=== PATIENT | male | born 1965 | race Caucasian/White ===

== ENCOUNTER 2019-04-28 17:55 | Emergency (ER) | payer OTHER ==
[~2019-04-28 17:55] MED LIST: ASPIRIN 81 MG TABLET, CHEWABLE ONE; CLOPIDOGREL BISULFATE 300 MG TABLET ONE
[2019-04-28] MEDS ORDERED: CLOPIDOGREL BISULFATE 300 MG TABLET PO ONE (18:13)
[2019-04-28] MEDS ORDERED: NITROGLYCERIN 0.4 MG/TAB 25 TAB/BOTTLE SL PRN (18:13)
[2019-04-28] MEDS ORDERED: ASPIRIN 81 MG TABLET, CHEWABLE PO ONE (18:13)
[2019-04-28] MEDS ORDERED: NORMAL SALINE 1000 ML 1,000 ML IV PRN (18:13)
--- NOTE | 2019-04-28 18:15 | ER Document Report ---
ED General - General Chief Complaint: Chest Pain Stated Complaint: CHEST PAIN Time Seen by Provider: 04/28/19 18:09 Primary Care Provider: ROSELINE MACHUCA FNP [Primary Care Provider] - Follow up as needed TRAVEL OUTSIDE OF THE [place] IN LAST 30 DAYS: No - HPI Patient complains to provider of: Pain Notes: Diabetic male with history of tobacco abuse and hyperlipidemia presents with chest pain for now 6 hours. She initially diaphoretic. Has no history of myocardial infarction. Denies fever chills or cough. - Related Data Allergies/Adverse Reactions: No Known Allergies Allergy (Verified 09/27/15 17:12) Past Medical History - Social History Smoking Status: Current Every Day Smoker Family History: None - Past Medical History Cardiac Medical History: Reports: Hx Hypercholesterolemia Endocrine Medical History: Reports: Hx Diabetes Mellitus Type 2 - Immunizations Hx Diphtheria, Pertussis, Tetanus Vaccination: Yes Review of Systems - Review of Systems Notes: REVIEW OF SYSTEMS: CONSTITUTIONAL: -fevers, -chills EENT: -eye pain, -difficulty swallowing, -nasal congestion CARDIOVASCULAR: Chest pain RESPIRATORY: -cough, -SOB GASTROINTESTINAL: -abdominal pain, -nausea, -vomiting, -diarrhea GENITOURINARY: -dysuria, -hematuria MUSCULOSKELETAL: -back pain, -neck pain SKIN: -rash or skin lesions. HEMATOLOGIC: -easy bruising or bleeding. LYMPHATIC: -swollen, enlarged glands. NEUROLOGICAL: -altered mental status or loss of consciousness, -headache, - neurologic symptoms PSYCHIATRIC: -anxiety, -depression. ALL OTHER SYSTEMS REVIEWED AND NEGATIVE. Physical Exam - Vital signs Vitals: Resp Pulse Ox 16 97 04/28/19 18:08 04/28/19 18:08 - Notes Notes: PHYSICAL EXAMINATION: GENERAL: Acute distress, diaphoresis HEAD: Atraumatic, normocephalic. EYES: Pupils equal round and reactive to light, extraocular movements intact, sclera anicteric, conjunctiva are normal. ENT: nares patent, oropharynx clear without exudates. Moist mucous membranes. NECK: Normal range of motion, supple without lymphadenopathy LUNGS: Breath sounds clear to auscultation bilaterally and equal. No wheezes rales or rhonchi. HEART: Regular rate and rhythm without murmurs ABDOMEN: Soft, nontender, normoactive bowel sounds. No guarding, no rebound. No masses appreciated. EXTREMITIES: Normal range of motion, no pitting or edema. No cyanosis. NEUROLOGICAL: Cranial nerves grossly intact. Normal speech, normal gait. Normal sensory and motor exams. PSYCH: Normal mood, normal affect. SKIN: Warm, Dry, normal turgor, no rashes or lesions noted. Course - Re-evaluation Re-evalutation: 04/28/19 19:00 Critically ill-appearing patient presents concerning story of STEMI with s ignificant ST elevations or simple changes in EKG. Patient is also hypotensive initially with systolic blood pressure 74. 2 large-bore IVs emergently established. Begin fluid resuscitation. Patient given oral aspirin and loading dose of Plavix. Portal chest x-ray ordered along with extensive lab work-up. Chest x-ray has no widened mediastinum. Patient given morphine analgesia for comfort. Emergent consult made to tertiary care center. Discussed case at length with Dr. Nuno Gomez [facility]. EKG reviewed agreed STEMI. Decision made to fly patient to the Distribution Operation Supervisor as opposed to administering lytics here Patient given a bolus of heparin 6000 units here in the emergency department. Patient's systolic blood pressure improved with fluid resuscitation recent systolic 104. Patient will be transferred to [facility] - Vital Signs Vital signs: Temp Pulse Resp BP Pulse Ox 98.1 F 15 101/82 100 04/28/19 18:15 04/28/19 18:41 04/28/19 18:41 04/28/19 18:41 - Laboratory Result Diagrams: 04/28/19 18:10 04/28/19 18:10 Laboratory results interpreted by wi: 04/28/19 18:10 Sodium 134.9 L Glucose 123 H Creatine Kinase 523 H - EKG Interpretation by La EKG shows normal: Sinus rhythm Rate: Normal Additional EKG results interpreted by me: 04/28/19 19:[address] elevations in leads II, 3, aVF and reciprocal changes in aVL. Patient is having a STEMI Critical Care Note - Critical Care Note Total time excluding time spent on procedures (mins): 36 Discharge - Discharge Clinical Impression: STEMI (ST elevation myocardial infarction) Qualifiers: Involved coronary artery: unspecified coronary artery Qualified Code(s): I21.3 - ST elevation (STEMI) myocardial infarction of unspecified site Condition: Serious Disposition: [facility] Referrals: SVEN,ROSELINE, ASSISTANT FRONT DESK MANAGER [Primary Care Provider] - Follow up as needed
[2019-04-28 18:21] LABS: HEMATOCRIT 43.8 % (37.9-51.0); MEAN CORPUSCULAR HEMOGLOBIN 29.3 pg (27.0-33.4); MEAN CORPUSCULAR HGB CONC 34.3 g/dL (32.0-36.0); MEAN CORPUSCULAR VOLUME 86 fl (80-97); PLATELET COUNT 302 10^3/uL (150-450); RED BLOOD COUNT 5.13 10^6/uL (4.35-5.55); RED CELL DISTRIBUTION WIDTH 13.5 % (11.5-14.0); WHITE BLOOD COUNT 8.6 10^3/uL (4.0-10.5)
[2019-04-28 18:33] LABS: INTERNATIONAL RATION (INR) 0.96; PARTIAL THROMBOPLASTIN TIME 28.1 SEC (23.5-35.8); PROTHROMBIN TIME 12.8 SEC (11.4-15.4)
[2019-04-28] MEDS ORDERED: HEPARIN SOD (PORCINE) 1,000 UNIT/ML 10 ML VIAL ONE (18:41)
--- NOTE | 2019-04-28 18:41 | RADIOLOGY REPORT (SQ) ---
EXAM DESCRIPTION: CHEST SINGLE VIEW COMPLETED DATE/TIME: 04/28/2019 6:18 pm REASON FOR STUDY: Chest pain COMPARISON: None. EXAM PARAMETERS: NUMBER OF VIEWS: One view. TECHNIQUE: Single frontal radiographic view of the chest acquired. RADIATION DOSE: NA LIMITATIONS: None. FINDINGS: The cardiomediastinal silhouette and pulmonary vasculature are within normal limits. Ther e is no consolidation, pleural effusion or pneumothorax. There is no acute abnormality of the imaged osseous structures. IMPRESSION: No acute cardiopulmonary process. TECHNICAL DOCUMENTATION: JOB ID: [id number] [employer]- All Rights Reserved Reading location - IP/workstation name: [email or web address]
[2019-04-28] MEDS ORDERED: HEPARIN (PORK) 10,000 UNIT/ML 5 ML VIAL IV ONE (18:42)
[2019-04-28 18:56] LABS: ANION GAP 7 (5-19); BLOOD UREA NITROGEN 14 mg/dL (7-20); CALCIUM 9.6 mg/dL (8.4-10.2); CARBON DIOXIDE 27 mmol/L (22-30); CHLORIDE 101 mmol/L (98-107); CREATINE KINASE 523 U/L (55-170); GLUCOSE 123 mg/dL (75-110); POTASSIUM 4.2 mmol/L (3.6-5.0)
[2019-04-28 19:08] LABS: CREATINE KINASE MB 32.8 ng/mL (<4.55)
--- NOTE | 2019-04-28 19:09 | EKG REPORT ---
SEVERITY:- ABNORMAL ECG - SINUS RHYTHM INFERIOR INFARCT, ACUTE PROBABLE POSTERIOR INFARCT : Confirmed by: Roque Mcfadden MD 28-Apr-2019 19:08:41
[2019-04-28 19:10] LABS: TROPONIN I 1.06 ng/mL
[2019-04-28 19:17] VITALS: BP 106/64
--- NOTE | 2019-04-28 22:07 | EKG REPORT ---
SEVERITY:- ABNORMAL ECG - SINUS RHYTHM INFERIOR INFARCT, POSSIBLY ACUTE LATERAL INFARCT, AGE INDETERMINATE : Confirmed by: Roque Mcfadden MD 28-Apr-2019 22:07:05
--- NOTE | 2019-04-28 22:09 | EKG REPORT ---
SEVERITY:- ABNORMAL ECG - SINUS RHYTHM INFERIOR INFARCT, ACUTE PROBABLE POSTERIOR INFARCT : Confirmed by: Roque Mcfadden MD 28-Apr-2019 22:08:38
== END 2019-04-28 18:47 | disposition short-term general hospital (02) ==
LOC: ER 17:55
DX: I21.3 ST elevation (STEMI) myocardial infarction of unspecified site (principal); R07.9 Chest pain, unspecified; R61 Generalized hyperhidrosis; E11.9 Type 2 diabetes mellitus without complications; F17.200 Nicotine dependence, unspecified, uncomplicated
CPT/HCPCS: 93005; 99291; 96361; 96374; 36415; 82553; 82550; 85027; 85610; 85730; 80048; 84484; 71045; 93010; J3490; J1644; J7030

== ENCOUNTER 2019-10-20 09:16 | Observation (INO) | payer OTHER ==
--- NOTE | 2019-10-20 10:04 | RADIOLOGY REPORT (SQ) ---
EXAM DESCRIPTION: CHEST SINGLE VIEW IMAGES COMPLETED DATE/TIME: 10/20/2019 9:55 am REASON FOR STUDY: cough COMPARISON: AP chest 04/28/2019 EXAM PARAMETERS: NUMBER OF VIEWS: One view. TECHNIQUE: Single frontal radiographic view of the chest acquired. RADIATION DOSE: NA LIMITATIONS: None. FINDINGS: LUNGS AND PLEURA: No opacities, masses or pneumothorax. No pleural effusion. MEDIASTINUM AND HILAR STRUCTURES: No masses. Contour normal. HEART AND VASCULAR STRUCTURES: Heart normal in size. Normal vasculature. BONES: No acute findings. HARDWARE: None in the chest. OTHER: No other significant finding. IMPRESSION: NO ACUTE RADIOGRAPHIC FINDING IN THE CHEST. TECHNICAL DOCUMENTATION: JOB ID: [id number] 2010 [employer]- All Rights Reserved Reading location - IP/workstation name: [id number]
[2019-10-20 10:05] LABS: ABSOLUTE BASOPHILS # (AUTO) 0.1 10^3/uL (0.0-0.2); ABSOLUTE EOSINOPHILS # (AUTO) 0.1 10^3/uL (0.0-0.6); ABSOLUTE LYMPHOCYTES (AUTO) 1.7 10^3/uL (0.5-4.7); ABSOLUTE MONOCYTES (AUTO) 0.5 10^3/uL (0.1-1.4); ABSOLUTE NEUT (AUTO) 5.9 10^3/uL (1.7-8.2); BASOPHILS % (AUTO) 0.9 % (0-2); EOSINOPHILS % (AUTO) 0.8 % (0-6); HEMATOCRIT 37.8 % (37.9-51.0); HEMOGLOBIN 13.2 g/dL (13.5-17.0); LYMPHOCYTES % (AUTO) 20.3 % (13-45); MEAN CORPUSCULAR HEMOGLOBIN 29.7 pg (27.0-33.4); MEAN CORPUSCULAR HGB CONC 34.9 g/dL (32.0-36.0); MEAN CORPUSCULAR VOLUME 85 fl (80-97); MONOCYTES % (AUTO) 6.5 % (3-13); PLATELET COUNT 310 10^3/uL (150-450); RED BLOOD COUNT 4.43 10^6/uL (4.35-5.55); RED CELL DISTRIBUTION WIDTH 13.3 % (11.5-14.0); SEGMENTED NEUTROPHILS % (AUTO) 71.5 % (42-78); TOTAL CELLS COUNTED % (AUTO) 100 %; WHITE BLOOD COUNT 8.2 10^3/uL (4.0-10.5)
[2019-10-20 10:20] LABS: ALBUMIN 4.1 g/dL (3.5-5.0); ALKALINE PHOSPHATASE 62 U/L (38-126); ANION GAP 8 (5-19); ASPARTATE AMINO TRANSFERASE 30 U/L (17-59); BILIRUBIN,TOTAL 0.5 mg/dL (0.2-1.3); BLOOD UREA NITROGEN 42 mg/dL (7-20); CALCIUM 9.5 mg/dL (8.4-10.2); CARBON DIOXIDE 25 mmol/L (22-30); CHLORIDE 106 mmol/L (98-107); CREATINE KINASE 186 U/L (55-170); GLUCOSE 133 mg/dL (75-110); POTASSIUM 5.5 mmol/L (3.6-5.0); TOTAL PROTEIN 6.9 g/dL (6.3-8.2)
[2019-10-20 10:32] LABS: CREATINE KINASE MB 1.91 ng/mL (<4.55)
[2019-10-20 10:34] LABS: TROPONIN I < 0.012 ng/mL
[2019-10-20 10:58] LABS: A TYPE INFLUENZA AG NEGATIVE (NEGATIVE); B INFLUENZA AG NEGATIVE (NEGATIVE)
--- NOTE | 2019-10-20 11:00 | ER Document Report ---
ED General - General Chief Complaint: Cough Stated Complaint: COUGH Time Seen by Provider: 10/20/19 09:24 Primary Care Provider: ROSELINE MACHUCA FNP [Primary Care Provider] - Follow up as needed Mode of Arrival: Ambulatory Information source: Patient, [facility] Records TRAVEL OUTSIDE OF THE [place] IN LAST 30 DAYS: No - HPI Onset: This morning Quality of pain: Pressure Severity: Moderate Pain Level: 3 Context: Patient is a 54-year-old male presenting to the emergency department chief complaint of chest pain equivalent. Patient states that he felt like he was having hot flashes at work and was weak. Patient states last April he had a myocardial infarction with subsequent stent placement and his only symptomatology was similar. Patient denies travel history trauma history sick contacts. Patient denies nausea or vomiting but also states that he was sweaty when this occurred earlier today. Associated symptoms: Productive cough. denies: Nausea, Vomiting, Sweating Exacerbated by: Denies Relieved by: Denies Similar symptoms previously: No Recently seen / treated by doctor: No - Related Data Allergies/Adverse Reactions: No Known Allergies Allergy (Verified 09/27/15 17:12) Past Medical History - Social History Smoking Status: Former Smoker Frequency of alcohol use: None Drug Abuse: None Family History: None Patient has suicidal ideation: No Patient has homicidal ideation: No - Past Medical History Cardiac Medical History: Reports: Hx Hypercholesterolemia, Hx Hypertension Endocrine Medical History: Reports: Hx Diabetes Mellitus Type 2 Past Surgical History: Reports: Hx Cardiac Catheterization - stents x 2, Hx Urinary Tract Surgery - Immunizations Hx Diphtheria, Pertussis, Tetanus Vaccination: Yes Review of Systems - Review of Systems Constitutional: No symptoms reported EENT: No symptoms reported Cardiovascular: Chest pain Respiratory: No symptoms reported Gastrointestinal: No symptoms reported Genitourinary: No symptoms reported Male Genitourinary: No symptoms reported Musculoskeletal: No symptoms reported Skin: No symptoms reported Hematologic/Lymphatic: No symptoms reported Neurological/Psychological: No symptoms reported -: Yes All other systems reviewed and negative Physical Exam - Vital signs Vitals: Pulse Ox 100 10/20/19 09:22 - Notes Notes: PHYSICAL EXAMINATION: GENERAL: Well-appearing, well-nourished and in no acute distress. HEAD: Atraumatic, normocephalic. EYES: Pupils equal round and reactive to light, extraocular movements intact, sclera anicteric, conjunctiva are normal. ENT: nares patent, oropharynx clear without exudates. Moist mucous membranes. NECK: Normal range of motion, supple without lymphadenopathy, no appreciable JVD LUNGS: Lungs clear to auscultation bilaterally and equal. No wheezes rales or rhonchi. HEART: Regular rate and rhythm without murmurs ABDOMEN: Soft, nontender, normal bowel sounds. No guarding, no rebound. No masses appreciated. EXTREMITIES: Active full range of motion, no pitting or edema. No cyanosis. 2+ pulses x4 NEUROLOGICAL: No focal neurological deficits. Moves all extremities spontaneously and on command. SKIN: Warm, Dry, and intact. Normal turgor, no rashes or lesions noted. Course - Re-evaluation Re-evalutation: 10/20/19 11:23 I went to the patient's room to reevaluate him after laboratory EKG and radiologic results were done the patient stated that he had to urinate patient was disconnected from the monitor and allowed to ambulate to the bathroom. When the patient came back he had a little bit of staggered to his gait. Patient states that he felt weak almost as if he was drunk patient was markedly diaphoretic. Repeat EKG was performed at my request showing sinus rhythm 73 bpm no change in morphology. Repeat troponin will occur at 1220. 10/20/19 13:14 Patient has been reevaluated several times while in emergency department other than the above mentioned incident the patient has remained stable. Following second troponin decision will be made whether to admit the patient or have him transferred if it appears to be an end STEMI. Patient is agreeable with care plan. Patient has been consulted to cardiology. 1330 Patient has been reevaluated again and states that he had stood up to urinate and once again felt weak and became diaphoretic. Patient has been consulted to the hospitalist for further evaluation cardiac monitoring and serial troponins. Patient has been maintained in the emergency department on a child monitor while present. Patient has been reevaluated several times while in the emergency department and no signs of decompensation other than stated above have been noted. After evaluation of laboratory EKG and radiologic studies I see no signs of pneumonia, pneumothorax, acute myocardial infarction, unstable angina, dissection or pulmonary embolism, there are no signs of rib fractures, because of the patient's symptomatology and prior history as well as diabetes former tobacco abuse and age I feel most appropriate the patient should be admitted to the hospital for further evaluation treatment and serial cardiac enzymes.. I have discussed these results with the patient answered all questions - Vital Signs Vital signs: Temp Pulse Resp BP Pulse Ox 98.5 F 17 114/76 100 10/20/19 09:27 10/20/19 12:45 10/20/19 12:45 10/20/19 12:45 - Laboratory Result Diagrams: 10/20/19 09:56 10/20/19 09:56 Laboratory results interpreted by me: 10/20/19 10/20/19 09:56 09:56 Hgb 13.2 L Hct 37.8 L Potassium 5.5 H BUN 42 H Glucose 133 H Creatine Kinase 186 H - Diagnostic Test Radiology reviewed: Reports reviewed - EKG Interpretation by Me EKG shows normal: Sinus rhythm Rate: Normal Rhythm: NSR When compared to previous EKG there are: No significant change Discharge - Discharge Clinical Impression: Chest pain Qualifiers: Chest pain type: unspecified Qualified Code(s): R07.9 - Chest pain, unspecified Hypotension Qualifiers: Hypotension type: other hypotension type Qualified Code(s): I95.89 - Other hypotension Condition: Stable Disposition: ADMITTED INPATIENT Admitting Provider: Rishi (Hospitalist) Unit Admitted: Telemetry Referrals: ROSELINE MACHUCA FNP [Primary Care Provider] - Follow up as needed
[2019-10-20] MEDS ORDERED: NORMAL SALINE 1000 ML 1,000 ML IV ONE (11:22)
--- NOTE | 2019-10-20 11:55 | RADIOLOGY REPORT (SQ) ---
EXAM DESCRIPTION: CT HEAD WITHOUT IMAGES COMPLETED DATE/TIME: 10/20/2019 11:41 am REASON FOR STUDY: dizzy COMPARISON: None. TECHNIQUE: Axial images acquired through the brain without intravenous contrast. Images reviewed wi th bone, brain and subdural windows. Additional sagittal and coronal reconstructions were generated. Images stored on PACS. All CT scanners at this facility use dose modulation, iterative reconstruction, and/or weight based d osing when appropriate to reduce radiation dose to as low as reasonably achievable (ALARA). [facility]: Dose Right [facility]: CareDose [facility]: Dose Right [facility]: Teradose 4D [facility]: Smart Nuka Indstries RADIATION DOSE: CT Rad equipment meets quality standard of care and radiation dose reduction techniq ues were employed. CTDIvol: 53.2 mGy. DLP: 1044 mGy-cm. mGy. LIMITATIONS: None. FINDINGS: VENTRICLES: Normal size and contour. CEREBRUM: No masses. No hemorrhage. No midline shift. No evidence for acute infarction. Normal gra y/white matter differentiation. No areas of low density in the white matter. CEREBELLUM: No masses. No hemorrhage. No alteration of density. No evidence for acute infarction. EXTRAAXIAL SPACES: No fluid collections. No masses. ORBITS AND GLOBE: No intra- or extraconal masses. Normal contour of globe without masses. CALVARIUM: No fracture. PARANASAL SINUSES: Small left maxillary sinus, opacified with mucous membrane thickening from chronic inflammation. SOFT TISSUES: No mass or hematoma. OTHER: No other significant finding. IMPRESSION: No acute findings EVIDENCE OF ACUTE STROKE: NO. COMMENT: Quality ID # [id number]: Final reports with documentation of one or more dose reduction techniques (e.g., Automated exposure control, adjustment of the mA and/or kV according to patient size, use of iterative reconstruction technique) TECHNICAL DOCUMENTATION: JOB ID: [id number] 2010 [employer]- All Rights Reserved Reading location - IP/workstation name: [id number]
[2019-10-20] MEDS ORDERED: OXYCODONE-ACETAMINOPHEN 5-325 MG TABLET PO PRN (14:46)
[2019-10-20] MEDS ORDERED: IPRATROPIUM/ALBUTEROL 0.5-2.5 MG/3 ML AMPUL NEB PRN (14:46)
[2019-10-20] MEDS ORDERED: ACETAMINOPHEN 325 MG TABLET PO PRN (14:46)
[2019-10-20] MEDS ORDERED: ONDANSETRON 4 MG TAB.RAPDIS PO PRN (15:08)
--- NOTE | 2019-10-20 15:26 | PDOC H&P ---
History of Present Illness Admission Date/PCP: 10/20/19 14:14 INDIRA STOVER Patient complains of: atient presents emergency room complains of chest pain, dizziness onset of heart flashes. He said he started at 8:00 this morning when he was sitting at his desk. Patient says he had a day myocardial infarction in April 2019 and his symptoms were similar at the time. He gives a history of stent placement at that time. He decided to come to the emergency room for further evaluation. History of Present Illness: TACHO SUE is a 54 year old male Patient was seen in the emergency room and apparently was found to be hypotensive especially with postural changes. He apparently became diaphoretic with weakness when he stood up to urinate. There is been no arrhythmia noted. EKG shows a normal sinus rhythm and troponin has been negative x2. Chest x-ray and a CT scan of the brain have also been negative of any acute findings Patient had complained of a cough with some whitish sputum which he said occurred early on today but otherwise denies any other significant upper neck symptoms. He denies any fever nausea vomiting difficulty breathing or shortness of breath Past Medical History Medical History: None Cardiac Medical History: Reports: Coronary Artery Disease, Hyperlipidema, Hypertension Endocrine Medical History: Reports: Diabetes Mellitus Type 2 Psychiatric Medical History: Reports: None Past Surgical History Past Surgical History: Reports: Cardiac Catheterization - stents x 2 Social History Information Source: Patient Smoking Status: Former Smoker Frequency of Alcohol Use: Rare - Advance Directive Resuscitation Status: Full Code Family History Family History: None Parental Family History Reviewed: Yes Children Family History Reviewed: Yes Sibling(s) Family History Reviewed.: Yes Medication/Allergy Home Medications: Azithromycin [Zithromax Tri-Johnathan] 500 mg PO DAILY #1 pkg 09/27/15 Loratadine/Pseudoephedrine Sul [Claritin-D 24 Hour Tablet] 1 tab PO DAILY #10 tab.sr.24h 09/27/15 Allergies/Adverse Reactions: No Known Allergies Allergy (Verified 09/27/15 17:12) Review of Systems All systems: reviewed and no additional remarkable complaints except as stated Constitutional: ABSENT: headache(s), weakness Nose, Mouth, and Throat: ABSENT: sore throat Cardiovascular: PRESENT: chest pain. ABSENT: dyspnea on exertion, edema, orthropnea, palpitations Respiratory: PRESENT: cough, sputum. ABSENT: dyspnea Musculoskeletal: ABSENT: back pain Integumentary: PRESENT: diaphoresis Physical Exam Vital Signs: Temp Pulse Resp BP Pulse Ox 98.5 F 85 17 116/73 98 10/20/19 09:27 10/20/19 13:51 10/20/19 14:45 10/20/19 14:45 10/20/19 14:45 Intake & Output 10/19/19 10/20/19 10/21/19 06:59 06:59 06:59 Intake Total 1000 Balance 1000 Weight 104.326 kg General appearance: PRESENT: no acute distress, well-developed, well-nourished Head exam: PRESENT: atraumatic, normocephalic Eye exam: PRESENT: conjunctiva pink, EOMI, PERRLA. ABSENT: scleral icterus Ear exam: PRESENT: normal external ear exam Mouth exam: PRESENT: moist, tongue midline Neck exam: ABSENT: carotid bruit, JVD, lymphadenopathy, thyromegaly Respiratory exam: PRESENT: clear to auscultation taryn. ABSENT: rales, rhonchi, wheezes Cardiovascular exam: PRESENT: RRR, +S1, +S2. ABSENT: diastolic murmur, rubs, systolic murmur Pulses: PRESENT: normal dorsalis pedis pul Vascular exam: PRESENT: normal capillary refill GI/Abdominal exam: PRESENT: normal bowel sounds, soft. ABSENT: distended, guarding, mass, organolmegaly, rebound, tenderness Rectal exam: PRESENT: deferred Extremities exam: PRESENT: full ROM. ABSENT: calf tenderness, clubbing, pedal edema Neurological exam: PRESENT: alert, awake, oriented to person, oriented to place, oriented to time, oriented to situation, CN II-XII grossly intact. ABSENT: motor sensory deficit Psychiatric exam: PRESENT: appropriate affect, normal mood. ABSENT: homicidal ideation, suicidal ideation Skin exam: PRESENT: dry, intact, warm. ABSENT: cyanosis, rash Results Laboratory Results: 10/20/19 09:56 10/20/19 09:56 10/20/19 10/20/19 09:56 09:56 WBC 8.2 RBC 4.43 Hgb 13.2 L Hct 37.8 L MCV 85 MCH 29.7 MCHC 34.9 RDW 13.3 Plt Count 310 Seg Neutrophils % 71.5 Sodium 138.7 Potassium 5.5 H Chloride 106 Carbon Dioxide 25 Anion Gap 8 BUN 42 H Creatinine 0.87 Est GFR ( Amer) > 60 Glucose 133 H Calcium 9.5 Total Bilirubin 0.5 AST 30 Alkaline Phosphatase 62 Total Protein 6.9 Albumin 4.1 10/20/19 10/20/19 10/20/19 09:56 09:56 12:31 Creatine Kinase 186 H CK-MB (CK-2) 1.91 Troponin I < 0.012 < 0.012 Impressions: Chest X-Ray 10/20/19 09:22 IMPRESSION: NO ACUTE RADIOGRAPHIC FINDING IN THE CHEST. Head CT 10/20/19 11:24 IMPRESSION: No acute findings EVIDENCE OF ACUTE STROKE: NO. Assessment and Plan - Diagnosis (1) Chest pain Qualifiers: Chest pain type: unspecified Qualified Code(s): R07.9 - Chest pain, unspecified Is this a current diagnosis for this admission?: Yes Plan: Serial cardiac enzymes cardiology consult and telemetry monitoring (2) Hyperkalemia Is this a current diagnosis for this admission?: Yes Plan: Etiology unclear. Will recheck in a.m. It is possible patient could be dehydrated (3) Hypotension Qualifiers: Hypotension type: other hypotension type Qualified Code(s): I95.89 - Other hypotension Is this a current diagnosis for this admission?: Yes Plan: Etiology of his postural hypotension is unclear. I will review his medications once available in the interim we will give him judicious IV fluids - Plan Summary Summary: Patient will be placed under observation and will follow-up with cardiology input - Time Time Spent with patient: 25-34 minutes Medications reviewed and adjusted accordingly: Yes Anticipated discharge: Home Within: within 24 hours
[2019-10-20] MEDS: RINGERS SOLUTION,LACTATED 1,000 ML IV PRN (16:53)
[2019-10-20] MEDS: ATORVASTATIN CALCIUM 80 MG TABLET PO SCH (21:38)
[2019-10-20] MEDS: METOPROLOL TARTRATE 25 MG TABLET PO SCH (21:38)
[2019-10-21] MEDS: RINGERS SOLUTION,LACTATED 1,000 ML IV PRN ×4 (00:20→23:21)
[2019-10-21 05:19] LABS: BLOOD UREA NITROGEN 26 mg/dL (7-20); CALCIUM 8.7 mg/dL (8.4-10.2); CARBON DIOXIDE 25 mmol/L (22-30); CHLORIDE 111 mmol/L (98-107); GLUCOSE 114 mg/dL (75-110)
[2019-10-21 05:32] LABS: ANION GAP 4 (5-19)
--- NOTE | 2019-10-21 08:40 | PDOC CONSULTATION ---
Consultation Consult Date: 10/21/19 Attending physician:: DG PHAN Provider Consulted: CINDY VARGAS Consult reason:: Presyncope History of Present Illness Admission Date/PCP: 10/20/19 14:14 INDIRA STOVER Patient complains of: The patient has no cardiac complaints this morning. History of Present Illness: TACHO SUE is a 54 year old male, retired [employer] with history of hypertension, type 2 diabetes, hyperlipidemia, ex-smoker who quit in April 2019, coronary artery disease status post DC in April 2019 treated with 2 stents to the RCA (3.0 mm x 34 mm resolute [place] SWEETIE and 3.0 mm x 18 mm resolute [place] SWEETIE) who is consulted to our service for evaluation of presyncope. The patient states that he had been in his usual state of health until the day of admission when he experienced an episode of severe lightheadedness and dizziness associated with diaphoresis and feeling faint. He had been sitting at his desk for approximately 20 minutes when he began with the above symptoms. He states that these symptoms are similar to what preceded his DC back in April 2019 at which time he never had chest pain or shortness of breath. While in the emergency room he experienced another episode but this time he had been to the bathroom and while standing to urinate became very dizzy and lightheaded as well as diaphoretic. This episode was witnessed by the ER physician, Dr. Garcia. An EKG was performed at the time without any ischemic changes. The patient remained in the emergency room and experienced another episode of presyncope when he, once again, stood up to go to the bathroom. He was admitted and has been maintained on IV fluids. Today he has no cardiovascular complaints and specifically denies chest pain, shortness of breath, BAUGH, PND, lower extremity edema, palpitations, syncope and presyncope. His cardiac enzymes are normal and his telemetry does not show any atrial or ventricular dysrhythmias, there is no obvious evidence of conduction disease. Physical exam on 10/21/2019: GENERAL: Pleasant and conversational. Oriented x3 with normal mood. Not in ac ekta distress. Well groomed and well developed. HEENT: Normocephalic, atraumatic. Pupils equal. Sclerae anicteric. Oropharynx moist. NECK: No JVD. No carotid bruits. LUNGS: Clear to auscultation bilaterally. Normal respiratory effort without the use of accessory muscles or intercostal retractions. CARDIOVASCULAR: Regular rate and rhythm, normal S1 and S2 without murmurs, rubs, or gallops. PMI not displaced. ABDOMEN: No masses or tenderness to palpation. No bruit. No splenomegaly or hepatomegaly. No abdominal aorta bruit noted. EXTREMITIES: No edema, no cyanosis, no clubbing. +2 pulses femoral and pedal pulses bilaterally. SKIN: No lesions or rashes. MUSCULOSKELETAL: No chest tenderness to palpation. NEUROLOGIC: Nonfocal. No gross sensory or motor deficits bilateral upper or lower extremities. Past Medical History Cardiac Medical History: Reports: Coronary Artery Disease, Hyperlipidema, Hypertension Endocrine Medical History: Reports: Diabetes Mellitus Type 2 Psychiatric Medical History: Reports: None Denies: Depression Past Surgical History Past Surgical History: Reports: Cardiac Catheterization - stents x 2 Social History Smoking Status: Former Smoker Cigarettes Packs Per Day: 0.5 Electronic Cigarette use?: No Cigars Per Day: 0 Pipes Per Day: 0 Number of Years Smokin Last Time Smoked: 04/19/2020 Frequency of Alcohol Use: Occasional Hx Recreational Drug Use: No Hx Prescription Drug Abuse: No - Advance Directive Resuscitation Status: Full Code Family History Family History: None Parental Family History Reviewed: Yes Children Family History Reviewed: Yes Sibling(s) Family History Reviewed.: Yes Medication/Allergy Home Medications: Aspirin [Ecotrin 81 mg EC Tablet] 81 mg PO DAILY 10/20/19 Atorvastatin Calcium [Lipitor 80 mg Tablet] 80 mg PO QHS 10/20/19 Cetirizine HCl [Zyrtec 10 mg Tablet] 10 mg PO DAILY 10/20/19 Metoprolol Tartrate [Lopressor 25 mg Tablet] 12.5 mg PO Q12 10/20/19 Multivitamin 1 tab PO DAILY 10/20/19 Prasugrel HCl [Effient 10 mg Tablet] 10 mg PO DAILY 10/20/19 Ubidecarenone [Coq-10] 400 mg PO DAILY 10/20/19 Allergies/Adverse Reactions: No Known Allergies Allergy (Verified 10/20/19 19:40) Physical Exam Vital Signs: Temp Pulse Resp BP Pulse Ox 97.9 F 51 L 18 110/58 L 100 10/21/19 03:50 10/21/19 07:00 10/21/19 03:50 10/21/19 03:50 10/21/19 03:50 Intake & Output 10/20/19 10/21/19 10/22/19 06:59 06:59 06:59 Intake Total 3245 973 Balance 3245 973 Weight 99.2 kg Results Laboratory Results: 10/20/19 09:56 10/21/19 04:02 10/20/19 10/20/19 10/21/19 09:56 09:56 04:02 WBC 8.2 RBC 4.43 Hgb 13.2 L Hct 37.8 L MCV 85 MCH 29.7 MCHC 34.9 RDW 13.3 Plt Count 310 Seg Neutrophils % 71.5 Sodium 138.7 139.8 Potassium 5.5 H 4.0 D Chloride 106 111 H Carbon Dioxide 25 25 Anion Gap 8 4 L BUN 42 H 26 H Creatinine 0.87 0.84 Est GFR ( Amer) > 60 > 60 Glucose 133 H 114 H Calcium 9.5 8.7 Magnesium 2.1 Total Bilirubin 0.5 AST 30 Alkaline Phosphatase 62 Total Protein 6.9 Albumin 4.1 10/20/19 10/20/19 10/20/19 09:56 09:56 12:31 Creatine Kinase 186 H CK-MB (CK-2) 1.91 Troponin I < 0.012 < 0.012 10/20/19 17:56 Creatine Kinase CK-MB (CK-2) Troponin I < 0.012 Current Medication List Generic Name Dose Route Start Last Admin Trade Name Freq PRN Reason Stop Dose Admin Acetaminophen 650 mg 10/20/19 14:46 Tylenol 325 Mg Tablet PO 11/19/19 14:45 Q4HP PRN FOR PAIN SCALE 1-2 Albuterol/Ipratropium 3 ml 10/20/19 14:46 Duoneb 3 Ml Ampul NEB 11/19/19 14:45 RTQ6HP PRN SHORTNESS OF BREATH Aspirin 81 mg 10/21/19 10:00 Ecotrin 81 Mg Ec Tablet PO 11/20/19 09:59 DAILY CHRISTOPHER Atorvastatin Calcium 80 mg 10/20/19 22:00 10/20/19 21:38 Lipitor 80 Mg Tablet PO 11/19/19 21:59 80 mg QHS CHRISTOPHER Administration Cetirizine HCl 10 mg 10/21/19 10:00 Zyrtec 10 Mg Tablet PO 11/20/19 09:59 DAILY CHRISTOPHER Enoxaparin Sodium 40 mg 10/21/19 10:00 Lovenox Inj 40 Mg/0.4 Ml Disp.Syrin SUBCUT 11/20/19 09:59 DAILY CHRISTOPHER Lactated Ringer's 1,000 mls @ 125 mls/hr 10/20/19 14:46 10/21/19 08:07 Lactated Ringers 1000 Ml Iv Soln IV 11/19/19 14:45 125 mls/hr CONTINUOUS PRN Administration THIS MED IS NOT "PRN" Metoprolol Tartrate 12.5 mg 10/20/19 22:00 10/20/19 21:38 Lopressor 25 Mg Tablet PO 11/19/19 21:59 12.5 mg Q12 CHRISTOPHER Administration Multivitamins 1 tab 10/21/19 10:00 Tab-A-Terence (Multiple Vitamin) Tablet PO 11/20/19 09:59 DAILY CHRISTOPHER Ondansetron HCl 4 mg 10/20/19 15:08 Zofran Odt 4 Mg Tablet PO 11/19/19 15:07 Q6HP PRN FOR NAUSEA/VOMITING Oxycodone/Acetaminophen 1 tab 10/20/19 14:46 Percocet 5-325 Mg Tablet PO 10/27/19 14:45 Q6HP PRN FOR PAIN SCALE 3-5 Patient Own Medication 100 mg 10/21/19 10:00 Ubidecarenone [Coq-10] PO 11/20/19 09:59 DAILY CHRISTOPHER Prasugrel 10 mg 10/21/19 10:00 Effient 10 Mg Tablet PO 11/20/19 09:59 DAILY CHRISTOPHER Discontinued Medications Generic Name Dose Route Start Last Admin Trade Name Freq PRN Reason Stop Dose Admin Sodium Chloride 1,000 mls @ 150 drops/sec 10/20/19 11:22 10/20/19 11:34 Nacl 0.9% 1000 Ml Iv Soln IV 10/20/19 11:23 Infused BOLUS ONE Infusion EKG Comments: I personally reviewed the EKG performed on 10/20/2019 at 0938 which demonstrates normal sinus rhythm with normal intervals and an old inferior infarct. Impressions: Chest X-Ray 10/20/19 09:22 IMPRESSION: NO ACUTE RADIOGRAPHIC FINDING IN THE CHEST. Head CT 10/20/19 11:24 IMPRESSION: No acute findings EVIDENCE OF ACUTE STROKE: NO. Assessment & Plan - Diagnosis (1) Pre-syncope Is this a current diagnosis for this admission?: Yes Plan: The patient has had at least 3 presyncopal events, one prior to admission and 2 in the emergency room while he was in the bathroom trying to urinate. He has remained stable overnight with normal cardiac troponins x3 and no classical symptoms of acute coronary syndrome. There has been no evidence of atrial or ventricular dysrhythmias that could be responsible for his symptoms. There is no obvious evidence of any significant conduction disease on EKG or telemetry. It is possible that his presyncope is secondary to orthostatic hypotension versu s vasovagal events. Given his coronary artery disease history we will obtain an echocardiogram to rule out significant structural heart disease that could be contributing to his symptoms. If the patient remains asymptomatic, able to ambulate without difficulties and with normal orthostatic vital signs he could be discharged from the cardiovascular standpoint after his echocardiogram is completed with a 30-day event monitor and follow-up with his outpatient tip bander, Dr. Ledesma at [facility]. He is on GDMT as an outpatient with a baby aspirin, metoprolol twice daily, atorvastatin and Prasugrel (he did not tolerate Brilinta due to significant dyspnea). Unfortunately the doses of those medications are not known at this point. Recommendations: -Echocardiogram to assess for structural heart disease. -30-day event monitor to assess for occult dysrhythmias. -EKG this morning. -Orthostatic vital signs. -Outpatient follow-up with Dr. Ledesma at [facility]. (2) Coronary artery disease Qualifiers: Coronary Disease-Associated Artery/Lesion type: [place] artery Associated angina: without angina Is this a current diagnosis for this admission?: Yes Plan: Status post DC and 2 stents to the RCA as described above. He has remained hemodynamically and electrically stable as well as free of classical anginal symptoms since admission. He is on GDMT in the outpatient setting. Recommendations: -EKG this morning. -Continue with outpatient medical management. -Echocardiogram to assess for structural heart disease before discharge. -Follow-up with Dr. Ledesma at [facility] within 1 week of discharge or sooner if any symptoms develop.
[2019-10-21] MEDS ORDERED: ENOXAPARIN SODIUM INJ 40 MG/0.4 ML DISP.SYRIN SUBCUT SCH (10:00)
[2019-10-21] MEDS ORDERED: (PENDING PHARMACY ID) (Ubidecarenone [Coq-10] 100 MG) PO SCH (10:00)
[2019-10-21] MEDS: PRASUGREL HCL 10 MG TABLET PO SCH (10:46)
[2019-10-21] MEDS: METOPROLOL TARTRATE 25 MG TABLET PO SCH (10:47)
[2019-10-21] MEDS: MULTIVITAMIN TABLET PO SCH (10:49)
[2019-10-21] MEDS: CETIRIZINE 10 MG TABLET PO SCH (10:49)
[2019-10-21] MEDS: ASPIRIN 81 MG TABLET, ENT COATED PO SCH (10:49)
--- NOTE | 2019-10-21 11:48 | XCELERA REPORT ---
[address] [address] Transthoracic Echocardiogram Report Name: TACHO SUE Age: 54 yrs Gender: Male : 1965 Patient Status: Inpatient Patient Location: [address] [place], [place] [address] Study Date: 10/21/2019 09:56 AM Height: 71 in Weight: 218 lb BSA: 2.2 m2 Procedure: A complete two-dimensional transthoracic echocardiogram was performed (2D, M-mode, spectral and color flow Doppler). The study was technically adequate with some images being suboptimal in quality. The subcostal views were difficult to obtain and are suboptimal in quality. Reason For Study: CAD Ordering Physician: CINDY CRUZ Performed By: Misael Hilliard Interpretation Summary The left ventricle is normal in size, thickness and function. Left ventricular systolic function is normal. The Ejection Fraction estimate is 60-65%. Doppler measurements suggest normal left ventricular diastolic function. The left ventricular wall motion is normal. Mild LAE. Trace MR, trace TR, trace PI. No prior studies for comparison. MMode/2D Measurements & Calculations RVDd: 3.2 cm LVIDd: 5.1 cm FS: 32.2 % Ao root diam: 3.5 cm IVSd: 0.93 cm LVIDs: 3.4 cm EDV(Teich): Ao root area: 122.7 ml LVPWd: 0.93 cm 9.8 cm2 ESV(Teich): 48.9 ml LA dimension: 4.0 cm EF(Teich): 60.1 % LVOT diam: 2.1 cmLVLd ap4: 9.1 cm SV(MOD-sp4): LVOT area: EDV(MOD-sp4): 89.0 ml 3.4 cm2 145.0 ml LVLs ap4: 7.5 cm ESV(MOD-sp4): 56.0 ml EF(MOD-sp4): 61.4 % Doppler Measurements & Calculations MV E max trisha: MV P1/2t max trisha: Ao V2 max: LV V1 max P.2 cm/sec 87.3 cm/sec 147.8 cm/sec 6.7 mmHg MV A max trisha: MV P1/2t: 72.5 msec Ao max P.7 mmHg LV V1 max: 78.4 cm/sec 129.8 cm/sec MVA(P1/2t): 3.0 cm2 GABY(V,D): 3.0 cm2 MV E/A: 1.1 MV dec slope: LV dP/dt: 352.5 cm/sec2 909.0 mmHg/s MV dec time: 0.20 sec PA V2 max: PI end-d trisha: MV P1/2t-pr_phl: 94.8 cm/sec 86.9 cm/sec 72.5 msec PA max P.6 mmHg Left Ventricle The left ventricle is normal in size, thickness and function. Left ventricular systolic function is normal. The Ejection Fraction estimate is 60-65%. Doppler measurements suggest normal left ventricular diastolic function. The left ventricular wall motion is normal. Right Ventricle The right ventricle is grossly normal size. There is normal right ventricular wall thickness. The right ventricular systolic function is normal. Atria The right atrium is normal. The left atrium is mildly dilated. The interatrial septum is intact with no evidence for an atrial septal defect. Mitral Valve The mitral valve is normal in structure and function. There is no evidence of mitral valve prolapse. There is no mitral valve stenosis. There is a trace amount of mitral regurgitation. Aortic Valve The aortic valve is trileaflet. There is no aortic valvular vegetation. There is no aortic valve stenosis. No aortic regurgitation is present. Tricuspid Valve The tricuspid valve is not well visualized secondary to technical limitations. Tricuspid valve prolapse cannot be excluded. There is no tricuspid stenosis. There is a trace or physiologic amount of tricuspid regurgitation. Pulmonic Valve The pulmonic valve is not well seen, but is grossly normal. There is no vegetation on the pulmonic valve. There is no pulmonic valvular stenosis. There is a trace or physiologic amount of pulmonic regurgitation. Great Vessels The aortic root is normal size. The inferior vena cava was not well visualized. Effusions Minimal pericardial effusion. There is no pleural effusion. : CIDNY CRUZ, Cindy
--- NOTE | 2019-10-21 16:38 | PDOC PROGRESS REPORT ---
Subjective Progress Note for:: 10/21/19 Subjective:: Patient remains dizzy. His blood pressure is still borderline hypotensive and is still orthostatic. He has been monitored on telemetry with no evidence of any arrhythmia. Software Applications Architect input appreciated. Reason For Visit: CHEST PAIN,HYPOTENSION,CAD Physical Exam Vital Signs: Temp Pulse Resp BP Pulse Ox 98.2 F 75 17 104/64 100 10/21/19 12:08 10/21/19 14:00 10/21/19 12:08 10/21/19 12:08 10/21/19 12:08 Intake & Output 10/20/19 10/21/19 10/22/19 06:59 06:59 06:59 Intake Total 3245 1453 Balance 3245 1453 Weight 99.2 kg General appearance: PRESENT: no acute distress, well-developed, well-nourished Head exam: PRESENT: atraumatic, normocephalic Eye exam: PRESENT: conjunctiva pink, EOMI, PERRLA. ABSENT: scleral icterus Ear exam: PRESENT: normal external ear exam Mouth exam: PRESENT: moist, tongue midline Neck exam: ABSENT: carotid bruit, JVD, lymphadenopathy, thyromegaly Respiratory exam: PRESENT: clear to auscultation taryn. ABSENT: rales, rhonchi, wheezes Cardiovascular exam: PRESENT: RRR, +S1, +S2. ABSENT: diastolic murmur, rubs, systolic murmur Pulses: PRESENT: normal dorsalis pedis pul Vascular exam: PRESENT: normal capillary refill GI/Abdominal exam: PRESENT: normal bowel sounds, soft. ABSENT: distended, guarding, mass, organolmegaly, rebound, tenderness Rectal exam: PRESENT: deferred Extremities exam: PRESENT: full ROM. ABSENT: calf tenderness, clubbing, pedal edema Neurological exam: PRESENT: alert, awake, oriented to person, oriented to place, oriented to time, oriented to situation, CN II-XII grossly intact. ABSENT: motor sensory deficit Psychiatric exam: PRESENT: appropriate affect, normal mood. ABSENT: homicidal ideation, suicidal ideation Skin exam: PRESENT: dry, intact, warm. ABSENT: cyanosis, rash Results Laboratory Results: 10/20/19 09:56 10/21/19 04:02 10/21/19 04:02 Sodium 139.8 Potassium 4.0 D Chloride 111 H Carbon Dioxide 25 Anion Gap 4 L BUN 26 H Creatinine 0.84 Est GFR ( Amer) > 60 Glucose 114 H Calcium 8.7 Magnesium 2.1 10/20/19 10/20/19 10/20/19 09:56 09:56 12:31 Creatine Kinase 186 H CK-MB (CK-2) 1.91 Troponin I < 0.012 < 0.012 10/20/19 17:56 Creatine Kinase CK-MB (CK-2) Troponin I < 0.012 Impressions: Chest X-Ray 10/20/19 09:22 IMPRESSION: NO ACUTE RADIOGRAPHIC FINDING IN THE CHEST. Head CT 10/20/19 11:24 IMPRESSION: No acute findings EVIDENCE OF ACUTE STROKE: NO. Assessment and Plan - Diagnosis (1) Chest pain Qualifiers: Chest pain type: unspecified Qualified Code(s): R07.9 - Chest pain, unspecified Is this a current diagnosis for this admission?: Yes Plan: Resolved (2) Hyperkalemia Is this a current diagnosis for this admission?: Yes Plan: Corrected (3) Hypotension Qualifiers: Hypotension type: other hypotension type Qualified Code(s): I95.89 - Other hypotension Is this a current diagnosis for this admission?: Yes Plan: Patient will be kept on observation. We will continue to monitor him. I have asked the nursing staff to ambulate him to evaluate his symptoms. We will follow-up with cardiology (4) Coronary artery disease Qualifiers: Coronary Disease-Associated Artery/Lesion type: [place] artery Associated angina: without angina Is this a current diagnosis for this admission?: Yes (5) Pre-syncope Is this a current diagnosis for this admission?: Yes - Plan Summary Summary: Patient will be monitored further as he is still symptomatic
--- NOTE | 2019-10-21 16:52 | EKG REPORT ---
SEVERITY:- ABNORMAL ECG - SINUS RHYTHM PROBABLE INFERIOR INFARCT, AGE INDETERMINATE : Confirmed by: Edwardo Yao 21-Oct-2019 16:51:20
--- NOTE | 2019-10-21 16:52 | EKG REPORT ---
SEVERITY:- ABNORMAL ECG - SINUS RHYTHM INFERIOR INFARCT, AGE INDETERMINATE : Confirmed by: Edwardo Yao 21-Oct-2019 16:51:14
--- NOTE | 2019-10-21 19:41 | RADIOLOGY REPORT (SQ) ---
EXAM DESCRIPTION: CAROTID DOPPLER IMAGES COMPLETED DATE/TIME: 10/21/2019 6:18 pm REASON FOR STUDY: Persistent dizziness, hypotension COMPARISON: None. TECHNIQUE: Grayscale ultrasound, Doppler velocity and spectra, and color Doppler images acquired of the extra-cranial carotid and vertebral arteries. Images stored on PACS. LIMITATIONS: None. FINDINGS: RIGHT CAROTID CCA Velocities: Within normal limits. ICA Velocities Peak systolic 119 cm/s. End diastolic 48 cm/s. Proximal ICA/CCA peak systolic ratio 1. Small amount plaque in the carotid bulb. LEFT CAROTID CCA Velocities: Within normal limits. ICA Velocities Peak systolic 107 cm/s. End diastolic 48 cm/s. Proximal ICA/CCA peak systolic ratio 0.9. Spectra normal. No significant plaque. VERTEBRAL ARTERIES: Antegrade flow. Normal waveforms. SUBCLAVIAN ARTERIES: No finding. OTHER: No other significant finding. IMPRESSION: NO HEMODYNAMICALLY SIGNIFICANT STENOSIS. COMMENT: Quality ID #[id number]: Velocity criteria are extrapolated from the diameter data as defined by t he Society of Radiologists in Ultrasound Consensus Conference. Radiology 2003: 229; 340-346. TECHNICAL DOCUMENTATION: JOB ID: [id number] 2010 [employer]- All Rights Reserved Reading location - IP/workstation name: [email or web address]
[2019-10-21] MEDS: ATORVASTATIN CALCIUM 80 MG TABLET PO SCH (21:49)
[2019-10-22] MEDS: RINGERS SOLUTION,LACTATED 1,000 ML IV PRN (07:32)
--- NOTE | 2019-10-22 07:34 | PDOC PROGRESS REPORT ---
Subjective Progress Note for:: 10/22/19 Subjective:: TACHO SUE is a 54 year old male, retired [employer] with history of hypertension, type 2 diabetes, hyperlipidemia, ex-smoker who quit in April 2019, coronary artery disease status post OK in April 2019 treated with 2 stents to the RCA (3.0 mm x 34 mm resolute [place] SWEET[place] and 3.0 mm x 18 mm resolute [place] SWEETIE) who is consulted to our service for evaluation of presyncope. The patient states that he had been in his usual state of health until the day of admission when he experienced an episode of severe lightheadedness and dizziness associated with diaphoresis and feeling faint. He had been sitting at his desk for approximately 20 minutes when he began with the above symptoms. He states that these symptoms are similar to what preceded his OK back in April 2019 at which time he never had chest pain or shortness of breath. While in the emergency room he experienced another episode but this time he had been to the bathroom and while standing to urinate became very dizzy and lightheaded as well as diaphoretic. This episode was witnessed by the ER physician, Dr. Garcia. An EKG was performed at the time without any ischemic changes. The patient remained in the emergency room and experienced another episode of presyncope when he, once again, stood up to go to the bathroom. He was admitted and has been maintained on IV fluids. Today he has no cardiovascular complaints and specifically denies chest pain, shortness of breath, BAUGH, PND, lower extremity edema, palpitations, syncope and presyncope. His cardiac enzymes are normal and his telemetry does not show any atrial or ventricular dysrhythmias, there is no obvious evidence of conduction disease. 10/22/2019: This morning the patient is found resting comfortably in bed and without chest pain, shortness of breath, BAUGH, PND, lower extremity edema, palpitations, syncope or presyncope. His telemetry demonstrated normal sinus rhythm bradycardia without any sustained atrial or ventricular dysrhythmias. His nurse actually called me yesterday afternoon stating that he had a very brief episode of missing a few beats but the patient was asymptomatic at the time. Telemetry showed sinus bradycardia at that time. He tells me that he was able to walk yes terday without any significant difficulties and denies recurrence of syncope and presyncope. Physical exam on 10/22/2019: GENERAL: Pleasant and conversational. Oriented x3 with normal mood. Not in acute distress. Well groomed and well developed. HEENT: Normocephalic, atraumatic. Pupils equal. Sclerae anicteric. Oropharynx moist. NECK: No JVD. No carotid bruits. LUNGS: Clear to auscultation bilaterally. Normal respiratory effort without the use of accessory muscles or intercostal retractions. CARDIOVASCULAR: Regular rate and rhythm, normal S1 and S2 without murmurs, rubs, or gallops. PMI not displaced. ABDOMEN: No masses or tenderness to palpation. No bruit. No splenomegaly or hepatomegaly. No abdominal aorta bruit noted. EXTREMITIES: No edema, no cyanosis, no clubbing. +2 pulses femoral and pedal pulses bilaterally. SKIN: No lesions or rashes. MUSCULOSKELETAL: No chest tenderness to palpation. NEUROLOGIC: Nonfocal. No gross sensory or motor deficits bilateral upper or lower extremities. Reason For Visit: CHEST PAIN,HYPOTENSION,CAD Physical Exam Vital Signs: Temp Pulse Resp BP Pulse Ox 97.6 F 71 18 92/52 L 98 10/22/19 00:00 10/22/19 02:00 10/22/19 00:00 10/22/19 00:00 10/22/19 00:00 Intake & Output 10/20/19 10/21/19 10/22/19 06:59 06:59 06:59 Intake Total 3245 4078 Balance 3245 4078 Weight 99.2 kg 99.2 kg Results Laboratory Results: 10/20/19 09:56 10/21/19 04:02 10/20/19 10/20/19 10/20/19 09:56 09:56 12:31 Creatine Kinase 186 H CK-MB (CK-2) 1.91 Troponin I < 0.012 < 0.012 10/20/19 17:56 Creatine Kinase CK-MB (CK-2) Troponin I < 0.012 Impressions: Chest X-Ray 10/20/19 09:22 IMPRESSION: NO ACUTE RADIOGRAPHIC FINDING IN THE CHEST. Head CT 10/20/19 11:24 IMPRESSION: No acute findings EVIDENCE OF ACUTE STROKE: NO. Carotid Doppler Study 10/21/19 00:00 IMPRESSION: NO HEMODYNAMICALLY SIGNIFICANT STENOSIS. Assessment & Plan - Diagnosis (1) Pre-syncope Is this a current diagnosis for this admission?: Yes Plan: No more recurrence since since admission to the hospital. His telemetry has been essentially within normal limits. He did have an episode of sinus bradycardia yesterday afternoon that lasted just a few seconds but unfortunately his telemetry strip was of poor quality. I did review all of his telemetry strips during the last 24 hours and there has been no evidence of significant conduction problems. Once again, he remains asymptomatic. Unfortunately he is unable to get outpatient cardiac rhythm monitor for unclear reasons to me therefore I gave him the information to my office and instructed him to report to the office on 10/24/2019 at 0900 for placement of [employer] monitor. I did try yesterday to get in touch with his diving fisher, Dr. Ledesma but unfortunately his office was closed. We will fax the results of the monitor to Dr. Ledesma office as soon as they become available. Given his sinus bradycardia I will continue to hold his beta-carlotta. Recommendations: -Continue to hold beta-carlotta for now and until he is reevaluated by his outpatient diving fisher, Dr. Ledesma. -The patient was instructed to report to my office on [id number] [facility] on 10/24/2019 at 0900 for placement of outpatient security monitor. -The patient was instructed to call 911 if any symptoms recur. -The patient may be discharged from the cardiovascular standpoint. -Outpatient follow-up with Dr. Ledesma at [facility]. (2) Coronary artery disease Qualifiers: Coronary Disease-Associated Artery/Lesion type: igiugig artery Associated angina: without angina Is this a current diagnosis for this admission?: Yes Plan: Status post OK and 2 stents to the RCA as described above. He has remained hemodynamically and electrically stable as well as free of classical anginal symptoms since admission. He is on GDMT in the outpatient setting. Recommendations: -Continue with outpatient medical management. -Follow-up with Dr. Ledesma at [facility] within 1 week of discharge or sooner if any symptoms develop.
[2019-10-22] MEDS: ASPIRIN 81 MG TABLET, ENT COATED PO SCH (09:23)
[2019-10-22] MEDS: CETIRIZINE 10 MG TABLET PO SCH (09:23)
[2019-10-22] MEDS: MULTIVITAMIN TABLET PO SCH (09:23)
[2019-10-22] MEDS: PRASUGREL HCL 10 MG TABLET PO SCH (09:24)
--- NOTE | 2019-10-22 11:25 | PDOC DISCHARGE SUMMARY ---
Impression - Admit/DC Date/PCP Admission Date/Primary Care Provider: 10/20/19 14:14 INDIRA STOVER Discharge Date: 10/22/19 - Discharge Diagnosis (1) Chest pain Is this a current diagnosis for this admission?: Yes (2) Hyperkalemia Is this a current diagnosis for this admission?: Yes (3) Hypotension Is this a current diagnosis for this admission?: Yes (4) Coronary artery disease Is this a current diagnosis for this admission?: Yes (5) Pre-syncope Is this a current diagnosis for this admission?: Yes - Assessment Summary: Patient will be monitored further as he is still symptomatic - Additional Information Resuscitation Status: Full Code Discharge Diet: Cardiac Discharge Activity: Activity As Tolerated, Balance Activity w/Rest, Slowly Increase Activity, Walk Frequently Referrals: ELLIS NEGRETE MD [NO LOCAL MD] - (-left message for 30 day heart monitor - office should be calling pt with info and appt date and time) ROSELINE MACHUCA FNP [Primary Care Provider] - 10/30/19 8:30 am Home Medications: Aspirin [Ecotrin 81 mg EC Tablet] 81 mg PO DAILY 10/20/19 Atorvastatin Calcium [Lipitor 80 mg Tablet] 80 mg PO QHS 10/20/19 Cetirizine HCl [Zyrtec 10 mg Tablet] 10 mg PO DAILY 10/20/19 Multivitamin 1 tab PO DAILY 10/20/19 Prasugrel HCl [Effient 10 mg Tablet] 10 mg PO DAILY 10/20/19 Ubidecarenone [Coq-10] 400 mg PO DAILY 10/20/19 History of Present Illiness History of Present Illness: TACHO SUE is a 54 year old male Patient was seen in the emergency room and apparently was found to be hypotensive especially with postural changes. He apparently became diaphoretic with weakness when he stood up to urinate. There is been no arrhythmia noted. EKG shows a normal sinus rhythm and troponin has been negative x2. Chest x-ray and a CT scan of the brain have also been negative of any acute findings Patient had complained of a cough with some whitish sputum which he said occurred early on today but otherwise denies any other significant upper neck symptoms. He denies any fever nausea vomiting difficulty breathing or shortness of breath Hospital Course Hospital Course: Patient was admitted with what appears to be dizziness, lightheadedness and presyncopal symptoms. He was found to be hypotensive in the emergency room. His cardiac enzymes were also monitored and there normal. Please see admitting history and physical for full details. She was admitted to telemetry floor. He has had no significant arrhythmia however he did have an episode of asymptomatic bradycardia. Patient was seen by Dr. Cruz. Please see his consultation report for full details. It is felt that he will need a 30-day event monitor which will be given to him as outpatient from Dr. Cruz office. His beta carlotta will remain on hold. Carotid Doppler study was done and this was negative. Physical Exam Vital Signs: Temp Pulse Resp BP Pulse Ox 98.0 F 75 17 104/55 L 99 10/22/19 08:36 10/22/19 08:36 10/22/19 08:36 10/22/19 08:36 10/22/19 08:36 Intake & Output 10/21/19 10/22/19 10/23/19 06:59 06:59 06:59 Intake Total 3245 4078 1000 Balance 3245 4078 1000 Weight 99.2 kg 99.2 kg General appearance: PRESENT: no acute distress, well-developed, well-nourished Head exam: PRESENT: atraumatic, normocephalic Eye exam: PRESENT: conjunctiva pink, EOMI, PERRLA. ABSENT: scleral icterus Ear exam: PRESENT: normal external ear exam Mouth exam: PRESENT: moist, tongue midline Neck exam: ABSENT: carotid bruit, JVD, lymphadenopathy, thyromegaly Respiratory exam: PRESENT: clear to auscultation taryn. ABSENT: rales, rhonchi, wheezes Cardiovascular exam: PRESENT: RRR, +S1, +S2. ABSENT: diastolic murmur, rubs, systolic murmur Pulses: PRESENT: normal dorsalis pedis pul Vascular exam: PRESENT: normal capillary refill GI/Abdominal exam: PRESENT: normal bowel sounds, soft. ABSENT: distended, guarding, mass, organolmegaly, rebound, tenderness Rectal exam: PRESENT: deferred Extremities exam: PRESENT: full ROM. ABSENT: calf tenderness, clubbing, pedal edema Neurological exam: PRESENT: alert, awake, oriented to person, oriented to place, oriented to time, oriented to situation, CN II-XII grossly intact. ABSENT: motor sensory deficit Psychiatric exam: PRESENT: appropriate affect, normal mood. ABSENT: homicidal ideation, suicidal ideation Skin exam: PRESENT: dry, intact, warm. ABSENT: cyanosis, rash Results Laboratory Results: WBC 8.2 10^3/uL (4.0-10.5) 10/20/19 09:56 RBC 4.43 10^6/uL (4.35-5.55) 10/20/19 09:56 Hgb 13.2 g/dL (13.5-17.0) L 10/20/19 09:56 Hct 37.8 % (37.9-51.0) L 10/20/19 09:56 MCV 85 fl (80-97) 10/20/19 09:56 MCH 29.7 pg (27.0-33.4) 10/20/19 09:56 MCHC 34.9 g/dL (32.0-36.0) 10/20/19 09:56 RDW 13.3 % (11.5-14.0) 10/20/19 09:56 Plt Count 310 10^3/uL (150-450) 10/20/19 09:56 Lymph % (Auto) 20.3 % (13-45) 10/20/19 09:56 [place] % (Auto) 6.5 % (3-13) 10/20/19 09:56 Eos % (Auto) 0.8 % (0-6) 10/20/19 09:56 Baso % (Auto) 0.9 % (0-2) 10/20/19 09:56 Absolute Neuts (auto) 5.9 10^3/uL (1.7-8.2) 10/20/19 09:56 Absolute Lymphs (auto) 1.7 10^3/uL (0.5-4.7) 10/20/19 09:56 Absolute Monos (auto) 0.5 10^3/uL (0.1-1.4) 10/20/19 09:56 Absolute Eos (auto) 0.1 10^3/uL (0.0-0.6) 10/20/19 09:56 Absolute Basos (auto) 0.1 10^3/uL (0.0-0.2) 10/20/19 09:56 Seg Neutrophils % 71.5 % (42-78) 04/02/20 09:56 Sodium 139.8 mmol/L (137-145) 10/21/19 04:02 Potassium 4.0 mmol/L (3.6-5.0) D 10/21/19 04:02 Chloride 111 mmol/L (98-107) H 10/21/19 04:02 Carbon Dioxide 25 mmol/L (22-30) 10/21/19 04:02 Anion Gap 4 (5-19) L 10/21/19 04:02 BUN 26 mg/dL (7-20) H 10/21/19 04:02 Creatinine 0.84 mg/dL (0.52-1.25) 10/21/19 04:02 Est GFR ( Amer) > 60 (>60) 10/21/19 04:02 Est GFR (MDRD) Non-Af > 60 (>60) 10/21/19 04:02 Glucose 114 mg/dL (75-110) H 10/21/19 04:02 POC Glucose 223 mg/dL (70-110) H 10/20/19 17:30 Calcium 8.7 mg/dL (8.4-10.2) 10/21/19 04:02 Magnesium 2.1 mg/dL (1.6-2.3) 10/21/19 04:02 Total Bilirubin 0.5 mg/dL (0.2-1.3) 10/20/19 09:56 Direct Bilirubin 0.0 mg/dL (0.0-0.4) 10/20/19 09:56 Neonat Total Bilirubin Not Reportable 10/20/19 09:56 Neonat Direct Bilirubin Not Reportable 10/20/19 09:56 Neonat Indirect Bili Not Reportable 10/20/19 09:56 AST 30 U/L (17-59) 10/20/19 09:56 ALT 40 U/L (<50) 10/20/19 09:56 Alkaline Phosphatase 62 U/L (38-126) 10/20/19 09:56 Creatine Kinase 186 U/L (55-170) H 10/20/19 09:56 CK-MB (CK-2) 1.91 ng/mL (<4.55) 10/20/19 09:56 Troponin I < 0.012 ng/mL 10/20/19 17:56 Total Protein 6.9 g/dL (6.3-8.2) 10/20/19 09:56 Albumin 4.1 g/dL (3.5-5.0) 10/20/19 09:56 Influenza A (Rapid) NEGATIVE (NEGATIVE) 10/20/19 10:00 Influenza B (Rapid) NEGATIVE (NEGATIVE) 10/20/19 10:00 Group A Strep Rapid NEGATIVE (NEGATIVE) 10/20/19 10:00 10/20/19 10/20/19 10/20/19 09:56 12:31 17:56 CK-MB (CK-2) 1.91 Troponin I < 0.012 < 0.012 < 0.012 Impressions: Chest X-Ray 10/20/19 09:22 IMPRESSION: NO ACUTE RADIOGRAPHIC FINDING IN THE CHEST. Head CT 10/20/19 11:24 IMPRESSION: No acute findings EVIDENCE OF ACUTE STROKE: NO. Carotid Doppler Study 10/21/19 00:00 IMPRESSION: NO HEMODYNAMICALLY SIGNIFICANT STENOSIS. Plan Health Concerns: Follow-up with PCP as well as master welder as advised. Stroke Is this a Stroke Patient?: No Acute Heart Failure - Is this a Heart Failure Patient?: No
[2019-10-22 12:40] VITALS: BP 104/61
--- NOTE | 2019-10-23 10:58 | EKG REPORT ---
SEVERITY:- ABNORMAL ECG - SINUS RHYTHM PROBABLE INFERIOR INFARCT, AGE INDETERMINATE : Confirmed by: Edwardo Yao 23-Oct-2019 10:56:52
== END 2019-10-22 13:00 | disposition home or self-care (01) ==
LOC: ER 09:16 → EH 14:14 → INTOOBSV 14:14 → 4N 15:25
PROVIDERS: ADMIT Internal Medicine; ATTEND Internal Medicine
DX: R07.9 Chest pain, unspecified (principal); E87.5 Hyperkalemia; I95.1 Orthostatic hypotension; I25.10 Atherosclerotic heart disease of native coronary artery without angina pectoris; R05 Cough; R00.1 Bradycardia, unspecified; E78.5 Hyperlipidemia, unspecified; I10 Essential (primary) hypertension; R61 Generalized hyperhidrosis; R23.2 Flushing; R26.0 Ataxic gait; I25.2 Old myocardial infarction; Z95.5 Presence of coronary angioplasty implant and graft; Z79.82 Long term (current) use of aspirin; Z79.899 Other long term (current) drug therapy; Z79.02 Long term (current) use of antithrombotics/antiplatelets; Z87.891 Personal history of nicotine dependence
CPT/HCPCS: 93005 ×2; 99285; 36415 ×2; 87070; 82553; 87880; 82962; 82550; 83735; 85025; 80048; 80053; 84484; 87804; 93306; 93880; 71045; 70450; 93010 ×2; G0378 ×2; J7030; J7120 ×3; J3490 ×2